=== PATIENT | female | born 1950 | race Caucasian/White ===

== ENCOUNTER → 2022-04-29 | Outpatient (CLI) | payer MEDICARE, OTHER ==
[~2022-04-29] MED LIST: ALBUTEROL0.63 MG/3 INH; ASPIR-LOW81 MG PO; AZOR 5-40 MG T1 EACH PO; BUSPAR 5MG TABLE5 MG PO; CALCIUM600 MG PO; CENTRAVITES 501 EACH PO; DIABETA 2.5 MG2.5 MG PO; FENOFIBRATE160 MG PO; KLONOPIN TAB 00.5 MG PO; LIPITOR TAB 2020 MG PO; LOPRESSOR 25 MG25 MG PO; OCUVITE WITH L1 EACH PO; OSTEO BI-FLEX1 EAC2 PO; PEPCID40 MG PO; REMERON15 MG PO; SYNTHROID88 MCG PO; VITAMIN B12-FO1 EACH PO; VITAMIN D1000 UNI1 PO; VITAMIN D31000 UNI1 PO; ZOLOFT100 MG PO; ZYRTEC10 MG PO
== END ==
LOC: KOH-I 04-22 08:00
DX: K76.0 Fatty (change of) liver, not elsewhere classified (principal); R55 Syncope and collapse; R41.89 Other symptoms and signs involving cognitive functions and awareness; D17.71 Benign lipomatous neoplasm of kidney
CPT/HCPCS: 76700; 93880